=== PATIENT | female | born 1985 | race Caucasian/White ===

== ENCOUNTER 2017-09-26 05:26 | Inpatient (IN) | payer OTHER ==
[~2017-09-26] VITALS: Ht 170.2 cm; Wt 81.6 kg
[2017-09-26] VITALS (12 sets, daily range): BP systolic 98–121; BP diastolic 52–77; PULSE 60–85; RESP 16–18; TEMP 97.4–98.3; O2SAT 97–100
[2017-09-26 06:15] LABS: AUTOMATED NEUTROPHIL # 7.7 TH/MM3 (1.8-7.7); BASOPHIL # 0.1 TH/MM3 (0-0.2); BASOPHIL % 0.7 % (0.0-2.0); EOSINOPHIL # 0.1 TH/MM3 (0-0.4); EOSINOPHIL % 0.9 % (0.0-4.0); HEMATOCRIT 32.2 % (35.0-46.0); LYMPH % 20.9 % (9.0-44.0); LYMPHOCYTE # 2.3 TH/MM3 (1.0-4.8); MEAN CELL VOLUME 98.8 FL (80.0-100.0); MEAN CORPUSCULAR HEMOGLOBIN 33.9 PG (27.0-34.0); MEAN CORPUSCULAR HGB CONC 34.3 % (32.0-36.0); MEAN PLATELET VOLUME 10.3 FL (7.0-11.0); MONO % 8.3 % (0.0-8.0); MONOCYTE # 0.9 TH/MM3 (0-0.9); NEUT % 69.2 % (16.0-70.0); PLATELET COUNT 203 TH/MM3 (150-450); RED BLOOD COUNT 3.26 MIL/MM3 (4.00-5.30); RED CELL DISTRIBUTION WIDTH 13.4 % (11.6-17.2)
[2017-09-26] MEDS ORDERED: PREN1PAK9 PO (06:15)
[2017-09-26 06:20] LABS: BACTERIA, URINE FEW /hpf; BILIRUBIN, URINE NEG (NEG); BLOOD, URINE NEG (NEG); GLUCOSE,URINE NEG (NEG); HYALINE CAST, URINE 1 /lpf (RARE); KETONE, URINE NEG (NEG); MUCUS URINE FEW /lpf (OCC); NITRITE,URINE NEG (NEG); SQUAMOUS EPITHELIAL CELL URINE 1 /hpf (0-5); URINE COLOR YELLOW (YELLW/STRAW); URINE LEUKOCYTE ESTERASE NEG (NEG)
[2017-09-26] MEDS ORDERED: CITRIC ACID-SODIUM CITRATE LIQ 30 ML UDC PO SCH (07:15)
[2017-09-26] MEDS ORDERED: LACTATED RINGER'S 1000 ML IV ONE (07:15)
[2017-09-26] MEDS: LACTATED RINGER'S 1000 ML IV SCH ×3 (07:23→21:20)
[2017-09-26] MEDS ORDERED: CLINDAMYCIN PHOS 600 MG/4 ML VIAL ONE (07:27)
[2017-09-26] MEDS ORDERED: CLINDAMYCIN 600 MG/NS PREMIX 50 ML IV SCH (07:30)
[2017-09-26] MEDS ORDERED: CLINDAMYCIN 600 MG/NS 100 ML IV SCH ×2 (08:00)
--- NOTE | 2017-09-26 08:33 | PD.OB.DELI ---
Procedure Note Section Procedure Pre Op Diagnosis: (1) Delivered by section (2) Previous section Post Op Diagnosis: Performed by Claire Hector Procedure: Repeat Low Transverse Sec Indication for delivery: Other (unfavorable bishops score) Previous condition: Uterine Window Informed consent obtained: For anesthesia, For procedure Confirmed correct: Patient, Procedure, Site, Time-out taken Anesthesia: Spinal Medication prior to procedure: As documented in eMAR Monitoring during procedure: Blood pressure monitoring, doppler Urinary catheter: Inserted using sterile technique, To dependent drainage Sterile preparation: Duraprep, In usual fashion Position: Supine with wedge to right side Operative Features Skin Incision: Pfannenstiel Uterine Incision: Low transverse w/knife / blunt ext Membranes Ruptured: Artificially Presentation: Occiput anterior Delivery date: Sep 26, 2017 Delivery time: 08:33 Delivery of : Assisted Infant: Male One Minute : 8 Five Minute : 9 Weight: 7 5 Status of infant: Viable, Cord blood, Nursery present, Resuscitation required Placenta delivered: Intact Medications: Antibiotics, Oxytocin Estimated blood loss: 800 Procedure tolerated: Other (mild PPH) Maternal Condition: Stable Condition: Stable (TTN) Claire Hector MD Sep 26, 2017 08:33
[2017-09-26] MEDS ORDERED: OXYTOCIN 30 UNITS-500ML PREMIX 500 ML IV ONE (08:45)
[2017-09-26] MEDS ORDERED: ONDANSETRON HCL 4 MG/2 ML VIAL IV PUSH PRN (08:45)
[2017-09-26] MEDS ORDERED: ACETAMINOPHEN 1000 MG/100 ML 100 ML IV ONE ×2 (08:45→09:13)
[2017-09-26] MEDS ORDERED: ZOLPIDEM TARTRATE 5 MG TAB PO PRN (08:45)
[2017-09-26] MEDS ORDERED: SIMETHICONE 80 MG CHEWABLE TAB PO PRN (08:45)
[2017-09-26] MEDS ORDERED: SODIUM CHLORIDE 0.9% FLUSH 10 ML FLUSH IV FLUSH PRN (08:45)
[2017-09-26] MEDS: SODIUM CHLORIDE 0.9% FLUSH 10 ML FLUSH IV FLUSH SCH ×2 (09:00→21:00)
[2017-09-26] MEDS ORDERED: OXYTOCIN 30 UNITS-500ML PREMIX 500 ML ONE ×2 (09:31→09:35)
[2017-09-26] MEDS ORDERED: EPIDURAL-DO NOT ADMINISTER ANTICOAGULANTS PRN (11:45)
[2017-09-26] MEDS ORDERED: EPIDURAL-DIPHENHYDRAMINE HCL 50 MG CAP PO PRN (11:45)
[2017-09-26] MEDS ORDERED: EPIDURAL-DIPHENHYDRAMINE HCL 50 MG/ML VIAL IV PUSH PRN (11:45)
[2017-09-26] MEDS ORDERED: EPIDURAL-NO SYSTEMIC NARCOTICS PRN (11:45)
[2017-09-26] MEDS ORDERED: EPIDURAL-NALOXONE HCL 0.4 MG/ML AMP IV PUSH PRN (11:45)
[2017-09-26] MEDS ORDERED: LACTATED RINGER'S 1000 ML INJ 1,000 ML IV SCH (13:34)
[2017-09-26] MEDS ORDERED: OXYTOCIN 30 UNITS-500ML PREMIX 500 ML IV PRN (18:45)
[2017-09-26] MEDS: oxyCODONE/ACETAMINOPHEN 5 MG/325 MG TAB PO PRN (21:00)
[2017-09-26] MEDS: IBUPROFEN 600 MG TAB PO PRN (21:00)
[2017-09-27] VITALS: BP 90/57; PULSE 77; RESP 18; TEMP 97.9; O2SAT 95
[2017-09-27 04:00] VITALS: BP 94/61; PULSE 89; RESP 20; TEMP 97.8; O2SAT 97
[2017-09-27] MEDS: LACTATED RINGER'S 1000 ML IV SCH (04:00)
[2017-09-27 06:03] LABS: AUTOMATED NEUTROPHIL # 8.6 TH/MM3 (1.8-7.7); BASOPHIL % 0.1 % (0.0-2.0); EOSINOPHIL # 0.1 TH/MM3 (0-0.4); EOSINOPHIL % 0.6 % (0.0-4.0); HEMATOCRIT 27.6 % (35.0-46.0); HEMOGLOBIN 9.4 GM/DL (11.6-15.3); LYMPHOCYTE # 1.7 TH/MM3 (1.0-4.8); MEAN CELL VOLUME 100.5 FL (80.0-100.0); MEAN CORPUSCULAR HEMOGLOBIN 34.1 PG (27.0-34.0); MEAN PLATELET VOLUME 10.5 FL (7.0-11.0); MONO % 9.3 % (0.0-8.0); MONOCYTE # 1.1 TH/MM3 (0-0.9); PLATELET COUNT 150 TH/MM3 (150-450); RED BLOOD COUNT 2.75 MIL/MM3 (4.00-5.30); RED CELL DISTRIBUTION WIDTH 13.5 % (11.6-17.2); WHITE BLOOD COUNT 11.4 TH/MM3 (4.0-11.0)
[2017-09-27] MEDS: IBUPROFEN 600 MG TAB PO PRN ×2 (08:28→16:46)
[2017-09-27] MEDS: DOCUSATE SODIUM 50 MG/SENNA 8.6 MG TAB PO PRN (08:29)
[2017-09-27] MEDS: oxyCODONE/ACETAMINOPHEN 5 MG/325 MG TAB PO PRN ×3 (08:29→20:54)
[2017-09-27 08:30] VITALS: BP 89/54; PULSE 69; RESP 12; TEMP 97.9
--- NOTE | 2017-09-27 12:33 | HHI.OB ---
Subjective Remarks POD 1 doing well no complaints baby in NICU for TTN incision not painful moving well Objective Vitals/I&O Vital Signs Date Time Temp Pulse Resp B/P (MAP) Pulse Ox O2 Delivery O2 Flow Rate FiO2 09/27/17 08:30 97.9 69 12 89/54 (66) 09/27/17 04:00 97.8 89 20 94/61 (72) 97 09/27/17 00:00 90/57 (68) 09/27/17 00:00 97.9 77 18 90/57 (68) 95 09/27/17 00:00 97.9 77 18 95 09/26/17 20:30 98.2 84 18 101/65 (77) 98 09/26/17 20:30 97.8 66 16 114/65 (81) 99 09/26/17 16:00 98.0 85 16 101/62 (75) 98 09/26/17 15:23 98.3 09/26/17 15:23 72 16 116/77 (90) 98 Result Diagram: 09/27/17 0510 Objective Remarks GENERAL: Well-nourished, well-developed patient. CARDIOVASCULAR: Regular rate and rhythm without murmurs, gallops, or rubs. RESPIRATORY: Breath sounds equal bilaterally. No accessory muscle use. ABDOMEN/GI: Abdomen soft, non-tender, bowel sounds present. Incision: Clean, dry and intact. Fundus: Firm, non-tender at umbilicus. GENITOURINARY: Light to moderate bleeding. EXTREMITIES: No cyanosis or edema, non-tender, without signs of DVT. Medications and IVs Current Medications Medications (Trade) Dose Ordered Sig/Irving Route Start Time Stop Time Status Last Admin Lactated Ringer's 1,000 ml @ 150 mls/hr Q6H40M IV 09/26/17 08:00 09/26/17 07:23 (Bicitra Liq) 30 ml AGED OR DISABLED CARER PO 09/26/17 07:15 09/29/17 07:14 09/26/17 07:23 Oxytocin 500 ml @ 100 mls/hr UNSCH X1 PRN IV 09/26/17 18:45 09/27/17 18:44 (NS Flush) 2 ml BID IV FLUSH 09/26/17 09:00 (NS Flush) 2 ml UNSCH PRN IV FLUSH 09/26/17 08:45 (Mylicon Chew) 80 mg QID PRN PO 09/26/17 08:45 (Motrin) 600 mg Q6H PRN PO 09/26/17 08:45 09/27/17 08:28 (Percocet 5-325 Mg) 1 tab Q4H PRN PO 09/26/17 08:45 (Percocet 5-325 Mg) 2 tab Q4H PRN PO 09/26/17 08:45 09/27/17 08:29 (Stephanie-Colace) 2 tab Q12H PRN PO 09/26/17 08:45 09/27/17 08:29 (Ambien) 5 mg HS PRN PO 09/26/17 08:45 (M-M-R Ii Inj) 0.5 ml ONCE ONCE SQ 09/27/17 16:00 09/27/17 16:01 (Boostrix Inj) 0.5 ml ONCE ONCE IM 09/27/17 16:00 09/27/17 16:01 (Zofran Inj) 4 mg Q6H PRN IV PUSH 09/26/17 08:45 09/26/17 16:08 Assessment/Plan Assessment and Plan Doing great POD 1 anticipate discharge POD 3 Claire Hector MD Sep 27, 2017 12:33
[2017-09-27] MEDS ORDERED: DIPHTH/TETANUS/ACEL PERTUSSIS (BOOSTER) 0.5 ML VIAL/PFS IM ONE (16:00)
[2017-09-27] MEDS ORDERED: MEASLES, MUMPS, RUBELLA VACCINE 0.5 ML VIAL SQ ONE (16:00)
[2017-09-27 20:30] VITALS: BP 102/67; PULSE 67; RESP 16; TEMP 97.5
[2017-09-27] MEDS ORDERED: CALCIUM CARBONATE 500 MG CHEWABLE TAB CHEW PRN (22:00)
[2017-09-28] MEDS: IBUPROFEN 600 MG TAB PO PRN ×3 (01:28→18:26)
[2017-09-28] MEDS: oxyCODONE/ACETAMINOPHEN 5 MG/325 MG TAB PO PRN ×3 (01:28→18:26)
[2017-09-28] MEDS: DOCUSATE SODIUM 50 MG/SENNA 8.6 MG TAB PO PRN (01:28)
[2017-09-28 08:00] VITALS: BP 94/61; PULSE 71; RESP 16; TEMP 98; O2SAT 96
--- NOTE | 2017-09-28 09:02 | HHI.OB ---
Subjective Post Operative Day: 2 Remarks Doing very well struggling a bit with latching and with [employer] consultant now no other issues. Objective Vitals/I&O Vital Signs Date Time Temp Pulse Resp B/P (MAP) Pulse Ox O2 Delivery O2 Flow Rate FiO2 09/28/17 08:00 98.0 71 16 94/61 (72) 96 09/27/17 20:30 102/67 (79) 09/27/17 20:30 97.5 67 16 Result Diagram: 09/27/17 0510 Objective Remarks GENERAL: Well-nourished, well-developed patient. CARDIOVASCULAR: Regular rate and rhythm without murmurs, gallops, or rubs. RESPIRATORY: Breath sounds equal bilaterally. No accessory muscle use. ABDOMEN/GI: Abdomen soft, non-tender, bowel sounds present. Incision: Clean, dry and intact. Fundus: Firm, non-tender at umbilicus. GENITOURINARY: Light to moderate bleeding. EXTREMITIES: No cyanosis or edema, non-tender, without signs of DVT. Medications and IVs Current Medications Medications (Trade) Dose Ordered Sig/Irving Route Start Time Stop Time Status Last Admin Lactated Ringer's 1,000 ml @ 150 mls/hr Q6H40M IV 09/26/17 08:00 09/26/17 07:23 (Bicitra Liq) 30 ml CREWMAN MAIN BATTLE TANK PO 09/26/17 07:15 09/29/17 07:14 09/26/17 07:23 (NS Flush) 2 ml BID IV FLUSH 09/26/17 09:00 (NS Flush) 2 ml UNSCH PRN IV FLUSH 09/26/17 08:45 (Mylicon Chew) 80 mg QID PRN PO 09/26/17 08:45 (Motrin) 600 mg Q6H PRN PO 09/26/17 08:45 09/28/17 01:28 (Percocet 5-325 Mg) 1 tab Q4H PRN PO 09/26/17 08:45 09/27/17 20:54 (Percocet 5-325 Mg) 2 tab Q4H PRN PO 09/26/17 08:45 09/28/17 01:28 (Stephanie-Colace) 2 tab Q12H PRN PO 09/26/17 08:45 12/15/17 01:28 (Ambien) 5 mg HS PRN PO 09/26/17 08:45 (Zofran Inj) 4 mg Q6H PRN IV PUSH 09/26/17 08:45 09/26/17 16:08 (Tums Chew) 1,000 mg Q4H PRN CHEW 09/27/17 22:00 09/27/17 22:07 Assessment/Plan Assessment and Plan Doing great POD 1 anticipate discharge POD 3 09/28/17 POD 2 working with [employer] consultant postpone circumcision for now discharge on POD 3 Claire Hector MD Sep 28, 2017 09:02
[2017-09-28] MEDS ORDERED: OXYC1TAB63 PO (09:05)
--- NOTE | 2017-09-28 09:05 | HHI.DCPOC ---
Discharge Care Plan Report Symptoms to Your Doctor -Temperature above 100.5 degrees -Redness, of incision or excessive or foul smelling drainage -Unusual pain or calf pain -Increased vaginal bleeding -Painful or difficulty urinating -Feelings of extreme sadness or anxiety after 2 weeks Goals to Promote Your Health * To prevent worsening of your condition and complications * To maintain your health at the optimal level Directions to Meet Your Goals Take your medications as prescribed Follow your dietary instruction Follow activity as directed Ensure plenty of rest for recovery Drink fluids for hydration Keep your appointments as scheduled Take your immunizations and boosters as scheduled If your symptoms worsen call your PCP, if no PCP go to Urgent Care Center or Emergency Room Smoking is Dangerous to Your Health. Avoid second hand smoke Call the 24-hour crisis hotline for domestic abuse at Claire Hector MD Sep 28, 2017 09:05
[2017-09-28 20:40] VITALS: BP 112/69; PULSE 83; RESP 17; TEMP 97.4
[2017-09-29] MEDS: oxyCODONE/ACETAMINOPHEN 5 MG/325 MG TAB PO PRN ×2 (00:37→10:22)
[2017-09-29] MEDS: DOCUSATE SODIUM 50 MG/SENNA 8.6 MG TAB PO PRN (00:37)
[2017-09-29] MEDS: IBUPROFEN 600 MG TAB PO PRN ×2 (00:38→10:23)
[2017-09-29 08:00] VITALS: BP 101/67; PULSE 81; PULSE 97; RESP 15; TEMP 98; O2SAT 97
--- NOTE | 2017-09-29 09:21 | HHI.OB ---
Subjective Post Operative Day: 3 Remarks pt sleeping, spoke to and nursing, pt have uneventful night, pain doing well, voiding, ambulating, VB light. Objective Vitals/I&O Vital Signs Date Time Temp Pulse Resp B/P (MAP) Pulse Ox O2 Delivery O2 Flow Rate FiO2 09/29/17 08:00 101/67 (78) 09/29/17 08:00 81 09/29/17 08:00 98.0 97 15 97 09/28/17 20:40 112/69 (83) 09/28/17 20:40 97.4 83 17 Result Diagram: 09/27/17 0510 Objective Remarks GENERAL: Sleeping Medications and IVs Current Medications Medications (Trade) Dose Ordered Sig/Irving Route Start Time Stop Time Status Last Admin Lactated Ringer's 1,000 ml @ 150 mls/hr Q6H40M IV 09/26/17 08:00 09/26/17 07:23 (NS Flush) 2 ml BID IV FLUSH 09/26/17 09:00 (NS Flush) 2 ml UNSCH PRN IV FLUSH 09/26/17 08:45 (Mylicon Chew) 80 mg QID PRN PO 09/26/17 08:45 (Motrin) 600 mg Q6H PRN PO 09/26/17 08:45 09/29/17 00:38 (Percocet 5-325 Mg) 1 tab Q4H PRN PO 09/26/17 08:45 09/29/17 00:37 (Percocet 5-325 Mg) 2 tab Q4H PRN PO 09/26/17 08:45 09/28/17 01:28 (Stephanie-Colace) 2 tab Q12H PRN PO 09/26/17 08:45 09/29/17 00:37 (Ambien) 5 mg HS PRN PO 09/26/17 08:45 (Zofran Inj) 4 mg Q6H PRN IV PUSH 09/26/17 08:45 09/26/17 16:08 (Tums Chew) 1,000 mg Q4H PRN CHEW 09/27/17 22:00 09/27/17 22:07 Assessment/Plan Assessment and Plan Doing great POD 3, d/c home today. Abner Estevez MD Sep 29, 2017 09:21
--- NOTE | 2017-10-11 05:23 | MP ---
cc: SEREN[facility]ET DATE OF SURGERY 10/10/2017 PREOPERATIVE DIAGNOSIS Term with prior section and very unfavorable Lucero score. POSTOPERATIVE DIAGNOSIS Term with prior section and very unfavorable Lucero score, delivered. PROCEDURE Repeat low transverse segment section. ANESTHESIA Spinal with Duramorph. SURGEON MD Serene FINDINGS A living male with Apgars 8 at 1 and 9 at 5, weighing 7 pounds, 5 ounces, was delivered from [place] with clear fluid and no nuchal cord. The baby did have some mild TTN and required some team intervention. Placenta was intact. She did have a mild hemorrhage but overall did very well. COUNTS Sponge, instrument and needle count were correct. CONDITION She went to the recovery room in stable fashion. PROCEDURE The patient was taken to the operating room. She was administered a spinal with Duramorph. She was placed in the dorsal supine position with weight off the vena cava. She had sequential stockings on and the Andujar catheter was placed and she received 2 grams of Ancef. A time-out was done with all in attendance. After being prepped and draped and assuring adequate analgesia, a Pfannenstiel incision was made through her previous incision. This was taken down to the fascia which was then incised and taken off the rectus fascia which was then sharply dissected in the middle. The parietal peritoneum was entered sharply. A bladder flap was created off the lower uterine segment and incision was made into the intrauterine cavity and vertically extended in a blunt fashion. The was delivered with the findings as noted above. Cord was clamped x2, cut and was handed to the neonatology team in attending. The placenta was delivered manually intact with a three-vessel cord. The uterus was exteriorized and had some mild bogginess to it but was massaged and she was given IV Pitocin. It was closed with one chromic in a running interlocking fashion with a second horizontal imbricating suture. After it was adequately firm it was placed in the peritoneal cavity and copious irrigation was performed. Then the rectus muscle and peritoneum were closed in a running fashion. The fascia was closed in a running, non-interlocking fashion. The subcutaneous layer was closed with 3-0 plain and the skin was closed with 4-0 Vicryl on a Luisito needle. Estimated blood loss was 800. Sponge, instrument, needle count correct. Both Mom and baby tolerated the procedure well. MD SAIMA Busch/MANUEL /10:29 AM /4:46 AM MTDDebbi
== END 2017-09-29 13:11 | disposition home or self-care (01) | DRG 765 ==
LOC: H2EB 05:26 → H1EA 11:01
PROVIDERS: ADMIT Obstetrics & Gynecology; ATTEND Obstetrics & Gynecology
PROC: 10D00Z1 Extraction of Products of Conception, Low, Open Approach (ICD-10-PCS; principal; 2017-09-26)
DX: O34.211 Maternal care for low transverse scar from previous cesarean delivery (principal); O72.1 Other immediate postpartum hemorrhage; Z37.0 Single live birth; R12 Heartburn
CPT/HCPCS: 59025; 80307; 81001; 85025; 86850; 86900; 86901; J0131; J2405; J2590; J7120; Q0163